=== PATIENT | female | born 1960 | race Caucasian/White ===

== ENCOUNTER 2017-12-25 06:02 | Day surgery (SDC) | payer OTHER ==
[~2017-12-25 06:02] MED LIST: Lactated Ringers 1,000 ML IV SCH
[2017-12-25] MEDS ORDERED: Ketamine HCl 50 MG/ML IV ONE (06:03)
[2017-12-25] MEDS ORDERED: DIPRIVAN 200 MG/20 ML IV ONE (06:03)
[2017-12-25 08:52] VITALS: O2SAT 99
[2017-12-25 09:11] VITALS: BP 139/78; PULSE 62
--- NOTE | 2017-12-25 12:04 | OP ---
SURGERY DATE/TIME: 12/25/2017 0740 PREOPERATIVE DIAGNOSIS: Screening exam. POSTOPERATIVE DIAGNOSIS: Small sigmoid colon polyp. PROCEDURE: Colonoscopy with cold biopsy. SURGEON: Dr. Julian. ANESTHESIA: MAC. Medications given by anesthesia department. HISTORY: The patient is a 57 year-old white female presenting now for her first screening colonoscopy. She was appraised of the risks of the procedure including the risk of perforation, phlebitis, untoward reaction to medication, bleeding and missed lesions. The patient verbalized her understanding and desired to have the procedure performed. DESCRIPTION OF PROCEDURE: The patient was given the medications by the anesthesia department. She had continuous pulse oximetry, ECG monitoring, intermittent blood pressure monitoring and tidal CO2 monitoring during the examination. She was placed in the left lateral decubitus position. A digital rectal examination was performed and revealed normal anal sphincter tone and no masses. The flexible Olympus pediatric colonoscope was used to intubate the rectum. A view of the colon was developed sequentially to the cecum. Upon insertion and withdrawal there was noted a small polyp in the sigmoid colon that was sessile measuring approximately 0.6 cm in size. It was biopsied using cold biopsy technique. Upon insertion and withdrawal including a retroflex view in the rectum, no mucosal lesions were encountered. The scope was removed from the patient who tolerated the procedure well and was sent back to OP recovery in good condition. The prep was noted to be fair to good.
== END 2017-12-25 08:10 | disposition home or self-care (01) ==
LOC: SDC 06:02 → EDSTATUS 12:20
PROVIDERS: ATTEND Family Medicine
PROC: 0DBN8ZX Excision of Sigmoid Colon, Via Natural or Artificial Opening Endoscopic, Diagnostic (ICD-10-PCS; principal; 2017-12-25)
DX: K63.5 Polyp of colon (principal); Z12.11 Encounter for screening for malignant neoplasm of colon
CPT/HCPCS: 00812; J2704

== ENCOUNTER 2020-02-08 14:04 | Emergency (ER) | payer OTHER ==
[2020-02-08] MEDS ORDERED: TYLENOL 325 MG PO ONE (14:20)
[2020-02-08] MEDS ORDERED: TYLENOL 325 MG ONE (14:45)
[2020-02-08] MEDS ORDERED: Sodium Chloride 0.9% 1000 ML 1,000 ML ONE (14:47)
[2020-02-08] MEDS ORDERED: Sodium Chloride 0.9% 1000 ML 1,000 ML IV STA (14:50)
[2020-02-08 15:01] LABS: Absolute Neutrophil Ct (ANC) 3.63 (1.4-6.9); BASOPHIL % 0.2 % (0.0-0.4); Basophil (Absolute #) 0.01 (0-0.4); Eosinophil % 0.2 % (0.00-5.0); Eosinophil (Absolute #) 0.01 (0-0.5); Hematocrit 42.7 % (35-47); Hemoglobin 14.7 gm/dl (12.0-16.0); Lymphocyte (Absolute #) 0.93 (1.0-4.6); Lymphocytes % 18.4 % (24.0-44.0); Mean Cell Volume 87.9 fl (78-100); Mean Corpuscular Hemoglobin 30.2 pg (26-32); Mean Corpuscular Hgb Concent. 34.4 g/dl (32-36); Mean Platelet Volume 9.5 fl (7.5-11.0); Monocyte (Absolute #) 0.48 (0.0-1.3); Monocytes % 9.5 % (0.0-12.0); Neutrophil % 71.7 % (36.0-66.0); Platelet Count 235 K/mm3 (150-450); Red Blood Count 4.86 M/mm3 (4.1-5.4); Red Cell Distribution Width 12.3 % (11.5-14.0); White Blood Count 5.1 K/mm3 (4.0-10.5)
--- NOTE | 2020-02-08 15:06 | ERPHSYRPT ---
- History of Present Illness Time Seen by Provider: 02/08/20 15:03 Source: patient Exam Limitations: no limitations Patient Subjective Stated Complaint: pt reports headache, generalized muscle aches and body pains, fever, sinus pressure, nausea and facial pain starting approx 01/30/20. pt denies any respiratory complaints at this time. pt reports she was seen at [facility] on 02/04/20, pt states they treated her fever and she was sent home. reports she had a virtual visit Monday02/05/20 pt states she was prescribed amoxicillin and she has not improved. Triage Nursing Assessment: pt is aox3, pt ambulatory to room without difficulties, pupils perrl, afebrile, resps easy and non labored, radial pulses strong and equal, cap refill < 3 seconds, pt skin pale warm dry. Physician History: pt reports headache, generalized muscle aches and body pains, fever, sinus pressure, nausea and facial pain starting approx 01/30/20. pt denies any respiratory complaints at this time. pt reports she was seen at [facility] on 02/04/20 , pt states they treated her fever and she was sent home. reports she had a virtual visit Monday02/05/20 pt states she was prescribed amoxicillin and she has not improved. No fever today, still headache Timing/Duration: day(s) (10 days) Cough Quality/Degree: mild, dry cough Associated Symptoms: fever, chills, cough, facial pain, headache, muscle aches, sinus infection, sore throat, No shortness of breath, No wheezing International travel in last 2 weeks: No Allergies/Adverse Reactions: adhesive Allergy (Intermediate, Verified 02/08/20 14:40) Itching latex Allergy (Intermediate, Verified 02/08/20 14:40) Itching meperidine [From Demerol] Adverse Reaction (Intermediate, Verified 02/08/20 14: 40) Home Medications: Ascorbic Acid [Vitamin C] 1,000 mg PO DAILY 12/15/17 [History] Citalopram Hydrobromide [Citalopram HBr] 20 mg PO DAILY 12/15/17 [History] Fluticasone Propionate [Flonase Allergy Relief] 15.8 ml NS DAILY 12/15/17 [ History] Losartan/Hydrochlorothiazide [Losartan-Hctz 50-12.5 mg Tab] 1 each PO DAILY [History] Hx Tetanus, Diphtheria Vaccination/Date Given: Yes (unk) Hx Influenza Vaccination/Date Given: No Hx Pneumococcal Vaccination/Date Given: No Immunizations Up to Date: Yes Travel Risk - International Travel Have you traveled outside of the country in past 3 weeks: No (N) Have you or anyone close to you been diagnosed with or: No Do your reside in a community with a known COVID-19 case?: Yes If Yes where:: [facility] - Coronavirus Screening Has patient experienced Coronavirus symptoms: Yes Symptoms experienced: fever(equal or > 100.4 F), muscle pain, weakness, severe headache Date of fever onset:: 02/03/20 - Review of Systems Constitutional: Fever, Chills Eyes: No Symptoms Ears, Nose, & Throat: No Symptoms, Throat Pain Respiratory: Cough, Dyspnea Cardiac: No Chest Pain, No Edema, No Syncope Abdominal/Gastrointestinal: No Abdominal Pain, No Nausea, No Vomiting, No Diarrhea Genitourinary Symptoms: No Dysuria Musculoskeletal: No Back Pain, No Neck Pain Skin: No Rash Neurological: No Dizziness, No Focal Weakness, No Sensory Changes Psychological: No Symptoms Endocrine: No Symptoms All Other Systems: Reviewed and Negative - Past Medical History Pertinent Past Medical History: Yes Neurological History: No Pertinent History ENT History: No Pertinent History Cardiac History: Hypertension Respiratory History: No Pertinent History Endocrine Medical History: No Pertinent History Musculoskeletal History: No Pertinent History GI Medical History: No Pertinent History History: No Pertinent History Psycho-Social History: No Pertinent History Female Reproductive Disorders: No Pertinent History - Past Surgical History Past Surgical History: No Neuro Surgical History: No Pertinent History Cardiac: No Pertinent History Respiratory: No Pertinent History Gastrointestinal: No Pertinent History Genitourinary: No Pertinent History Musculoskeletal: Other Female Surgical History: Section, Breast Implant, Lumpectomy Other Surgical History: cyst removed from arm. L breast bx w/ marker - Social History Smoking Status: Former smoker Exposure to second hand smoke: No Drug Use: none Patient Lives Alone: No - Female History Hx Now: No - Nursing Vital Signs Nursing Vital Signs: Initial Vital Signs Temperature 97.9 F 02/08/20 14:12 Pulse Rate 71 02/08/20 14:12 Respiratory Rate 20 02/08/20 14:12 Blood Pressure 124/75 02/08/20 14:12 O2 Sat by Pulse Oximetry 98 02/08/20 14:12 Pain Scale Pain Intensity 8 - Physical Exam General Appearance: no apparent distress, alert Eye Exam: PERRL/EOMI, eyes nml inspection Ears, Nose, Throat Exam: normal ENT inspection, TMs normal, pharynx normal, moist mucous membranes, pharyngeal erythema Neck Exam: normal inspection, non-tender, supple, full range of motion Respiratory Exam: normal breath sounds, lungs clear, No respiratory distress Cardiovascular Exam: regular rate/rhythm, normal heart sounds Gastrointestinal/Abdomen Exam: soft, No tenderness Back Exam: normal inspection, No CVA tenderness, No vertebral tenderness Extremity Exam: normal inspection, normal range of motion Neurologic Exam: alert, oriented x 3, cooperative, normal mood/affect, sensation nml, No motor deficits Skin Exam: normal color, warm, dry, No rash Lymphatic Exam: No adenopathy SpO2: 98 - Course Nursing assessment & vital signs reviewed: Yes Ordered Tests: Active Orders 24 hr Category Date Time Status IV Insertion STAT Care 02/08/20 14:51 Active Isolation, Initiate & Maintain Q4H Care 02/08/20 14:40 Active CBC W DIFF Stat Lab 02/08/20 14:45 Completed CMP Stat Lab 02/08/20 14:45 Completed Medication Summary Generic Name Dose Route Start Last Admin Trade Name Freq PRN Reason Stop Dose Admin Sodium Chloride 1,000 mls @ 999 mls/hr 02/08/20 14:50 02/08/20 14:52 Sodium Chloride 0.9% 1000 Ml IV 02/08/20 15:50 999 mls/hr .Q1H1M STA Administration Discontinued Medications Generic Name Dose Route Start Last Admin Trade Name Freq PRN Reason Stop Dose Admin Acetaminophen 975 mg 02/08/20 14:20 02/08/20 14:52 Tylenol 325 Mg PO 02/08/20 14:21 975 mg STAT ONE Administration Acetaminophen Confirm 02/08/20 14:45 Tylenol 325 Mg Administered 02/08/20 14:46 Dose 975 mg .ROUTE .STK-MED ONE Sodium Chloride Confirm 02/08/20 14:47 Sodium Chloride 0.9% 1000 Ml Administered 02/08/20 14:48 Dose 1,000 mls @ ud .ROUTE .STK-MED ONE Potassium Bicarbonate 25 meq 02/08/20 15:23 K-Lyte 25 Meq PO 02/08/20 15:24 STAT ONE Lab/Rad Data: Laboratory Result Diagrams 02/08/20 14:45 02/08/20 14:45 Laboratory Results 02/08/20 02/08/20 02/08/20 Range/Units 14:45 14:45 14:45 WBC 5.1 (4.0-10.5) K/mm3 RBC 4.86 (4.1-5.4) M/mm3 Hgb 14.7 (12.0-16.0) gm/dl Hct 42.7 (35-47) % MCV 87.9 (78-100) fl MCH 30.2 (26-32) pg MCHC 34.4 (32-36) g/dl RDW 12.3 (11.5-14.0) % Plt Count 235 (150-450) K/mm3 MPV 9.5 (7.5-11.0) fl Gran % 71.7 H (36.0-66.0) % Eos # (Auto) 0.01 (0-0.5) Absolute Lymphs (auto) 0.93 L (1.0-4.6) Absolute Monos (auto) 0.48 (0.0-1.3) Lymphocytes % 18.4 L (24.0-44.0) % Monocytes % 9.5 (0.0-12.0) % Eosinophils % 0.2 (0.00-5.0) % Basophils % 0.2 (0.0-0.4) % Absolute Granulocytes 3.63 (1.4-6.9) Basophils # 0.01 (0-0.4) Sodium 138 (137-145) mmol/L Potassium 3.2 L (3.5-5.1) mmol/L Chloride 98 (98-107) mmol/L Carbon Dioxide 29 (22-30) mmol/L Anion Gap 13.4 (5-15) MEQ/L BUN 13 (7-17) mg/dL Creatinine 0.86 (0.52-1.04) mg/dL Estimated GFR > 60.0 ML/MIN Glucose 114 H (74-106) mg/dL Calcium 8.7 (8.4-10.2) mg/dL Total Bilirubin 0.50 (0.2-1.3) mg/dL AST 37 H (14-36) U/L ALT 34 (0-35) U/L Alkaline Phosphatase 78 (38-126) U/L Serum Total Protein 7.9 (6.3-8.2) g/dL Albumin 4.4 (3.5-5.0) g/dL Influenza Type A Ag NEGATIVE (NEGATIVE) Influenza Type B Ag NEGATIVE (NEGATIVE) RSV (PCR) NEGATIVE (Negative) - Progress Progress: improved Air Movement: good Blood Culture(s) Obtained: No Antibiotics given: Yes Counseled pt/family regarding: lab results, diagnosis, need for follow-up - Departure Departure Disposition: Home Clinical Impression: Acute viral syndrome Sinusitis, acute ethmoidal Qualifiers: Recurrence: non-recurrent Qualified Code(s): J01.20 - Acute ethmoidal sinusitis , unspecified Condition: Stable Critical Care Time: No Referrals: Provider,Unknown [Primary Care Provider] - Instructions: Viral Pharyngitis, Sinusitis, Adult (DC), Coronavirus Disease 2019 (COVID-19) (DC) Additional Instructions: Discharge/Care Plan ATILIOTracySUNITA BARRAZA was seen on 02/08/20 in the Emergency Room. The patient was counseled regarding Diagnosis,Lab results, Imaging studies, need for follow up and when to return to the Emergency Room. Prescriptions given: Discharge Note I have spoken with the patient and/or caregivers. I have explained the patient' s condition, diagnosis and treatment plan based on the information available to me at this time. I have answered the patient's and/or caregiver's questions and addressed any concerns. The patient and/or caregivers have as good understanding of the patient's diagnosis, condition and treatment plan as can be expected at this point. The vital signs have been stable. The patient's condition is stable and appropriate for discharge from the emergency department. The patient will pursue further outpatient evaluation with the primary care physician or other designated or consulting physician as outlined in the discharge instructions. The patient and/or caregivers are agreeable to this plan of care and follow-up instructions have been explained in detail. The patient and/or caregivers have received these instruction. The patient/and or caregivers are aware that any significant change in condition or worsening of symptoms should prompt an immediate return to this or the closest emergency department or call 911. Prescriptions: Azithromycin [Zithromax] 250 mg PO UD 5 Days #6 tablet
[2020-02-08 15:07] LABS: ALBUMIN 4.4 g/dL (3.5-5.0); ALKALINE PHOSPHATASE 78 U/L (38-126); ANION GAP 13.4 MEQ/L (5-15); BLOOD UREA NITROGEN 13 mg/dL (7-17); CHLORIDE 98 mmol/L (98-107); Calcium 8.7 mg/dL (8.4-10.2); Carbon Dioxide 29 mmol/L (22-30); Creatinine 1 0.86 mg/dL (0.52-1.04); Glucose 114 mg/dL (74-106); Potassium 3.2 mmol/L (3.5-5.1); SGOT/AST 37 U/L (14-36); SGPT/ALT 34 U/L (0-35); SODIUM 138 mmol/L (137-145); Total Protein 7.9 g/dL (6.3-8.2)
[2020-02-08] MEDS ORDERED: K-LYTE 25 MEQ PO ONE (15:23)
[2020-02-08 15:33] LABS: INFLUENZA A NEGATIVE (NEGATIVE); INFLUENZA B NEGATIVE (NEGATIVE); RESPIRATORY SYNCTIAL VIRUS NEGATIVE (Negative)
[2020-02-08] MEDS ORDERED: K-LYTE 25 MEQ ONE (15:47)
[2020-02-08 16:08] VITALS: O2SAT 99
[2020-02-08 16:27] VITALS: BP 113/72; PULSE 68
== END 2020-02-08 16:30 | disposition home or self-care (01) ==
LOC: ED 14:04
DX: B34.9 Viral infection, unspecified (principal); J01.20 Acute ethmoidal sinusitis, unspecified; G50.1 Atypical facial pain; Z79.899 Other long term (current) drug therapy
CPT/HCPCS: 36000; 36415; 80053; 85025; 87631; 96360; 99284; U0002; 87635; A9270-GY

== ENCOUNTER 2021-07-07 15:06 | Day surgery (SDC) | payer OTHER ==
[2021-07-07] MEDS ORDERED: Xylocaine 1% Vial 30 ML PF IJ ONE (15:07)
[2021-07-07] MEDS ORDERED: Depo-Medrol 40 MG/ML IM ONE (15:07)
[2021-07-07] MEDS ORDERED: BUPIVACAINE 0.5% VIAL IJ ONE (15:07)
--- NOTE | 2021-07-07 19:21 | XRAY ---
Indication: Right SI joint injection. Intraoperative fluoroscopy provided for 12 seconds. Single lateral digital spot image submitted for interpretation demonstrates posterior needle tip projecting mid-sacrum. Correlate with intraoperative findings/report.
--- NOTE | 2021-07-08 10:59 | XRAY ---
12 seconds fluoroscopy time in surgery for injection of the right SI joint.
== END 2021-07-07 16:26 | disposition home or self-care (01) ==
LOC: SDC-PAIN 15:06
PROVIDERS: ATTEND Psychiatry & Neurology Pain Medicine
DX: M46.1 Sacroiliitis, not elsewhere classified (principal); Z79.899 Other long term (current) drug therapy
CPT/HCPCS: 27096; 72020; 77002; G0260; J1030; J2001